=== PATIENT | female | born 1950 | race Caucasian/White ===

== ENCOUNTER 2017-06-07 06:26 | Day surgery (SDC) | payer MEDICARE, OTHER ==
[2017-06-02 16:33] VITALS: BMI 29.0
[~2017-06-07 06:26] MED LIST: LACTATED RINGERS 1,000 ML IV SCH
[2017-06-07 06:56] VITALS: RESP 16; TEMP 97.6
[2017-06-07] MEDS ORDERED: LIDOCAINE 1% 20 ML VIAL (10MG/ML) FOR IV START INTRADERMA ONE (07:00)
[2017-06-07] MEDS ORDERED: LIDOCAINE 1% INJ 10MG/ML (20 ML MDV) ONE (08:00)
[2017-06-07] MEDS ORDERED: PROPOFOL 10 MG/ML 20 ML VIAL IV ONE (08:00)
--- NOTE | 2017-06-07 08:22 | P.PCN ---
Date of Procedure: 06/07/17 Procedure(s) Performed: BRIEF HISTORY: Patient is a 67-year-old pleasant male, scheduled for an elective colonoscopy as a part of screening for colonic neoplasia. PROCEDURE PERFORMED: Colonoscopy. PREOPERATIVE DIAGNOSIS: Screening For colon cancer. IV sedation per Anesthesia. PROCEDURE: After informed consent was obtained, the patient, was brought into the endoscopy unit. IV sedation was administered by Anesthesia under continuous monitoring. Digital rectal examination was normal. Initially the Olympus CF- 160 flexible video colonoscope was then inserted in the rectum, gradually advanced into the cecum without any difficulty. Careful examination was performed as the scope was gradually being withdrawn. Ileocecal valve and the appendiceal orifice were visualized and appeared normal. Prep was excellent. Mucosa of the cecum, ascending colon, transverse colon, descending colon, sigmoid colon, and rectum appeared normal. Scattered sigmoid diverticulosis seen. Retroflexion was performed in the rectum and no lesions were seen. The patient tolerated the procedure well. IMPRESSION: Normal-appearing colon from rectum to cecum with no evidence of colorectal neoplasia . Sigmoid diverticulosis. RECOMMENDATIONS: Findings of this examination were discussed with the patient as well as a family.
[2017-06-07 09:03] VITALS: BP 126/81; PULSE 62
== END 2017-06-07 09:18 | disposition home or self-care (01) ==
LOC: ORWHC2ENDO 06:26
PROVIDERS: ATTEND Internal Medicine Gastroenterology
DX: Z12.11 Encounter for screening for malignant neoplasm of colon (principal); K57.30 Diverticulosis of large intestine without perforation or abscess without bleeding; E07.9 Disorder of thyroid, unspecified; Z79.890 Hormone replacement therapy; Z79.899 Other long term (current) drug therapy
CPT/HCPCS: J2001; J2704; G0121; 45378

== ENCOUNTER → 2019-08-09 | Outpatient (CLI) | payer MEDICARE ==
--- NOTE | 2019-08-13 11:44 | MM ---
Reason for exam: screening (asymptomatic). Last mammogram was performed 9 months ago. History: Patient is postmenopausal and is nulliparous. Family history of breast cancer in mother at age 70. Taking estrogen for 1 year. Physical Findings: A clinical breast exam by your physician is recommended on an annual basis and results should be correlated with mammographic findings. MG Screening Mammo w CAD Bilateral CC and MLO view(s) were taken. Prior study comparison: November 22, 2018, mammogram. November 20, 2017, mammogram. There are scattered fibroglandular densities. No significant changes when compared with prior studies. ASSESSMENT: Negative, BI-RAD 1 RECOMMENDATION: Routine screening mammogram of both breasts in 1 year.
== END | disposition home or self-care (01) ==
LOC: RADMAMWWP 07:26
PROVIDERS: ATTEND Family Medicine
DX: Z12.31 Encounter for screening mammogram for malignant neoplasm of breast (principal)
CPT/HCPCS: 77067

== ENCOUNTER → 2021-08-13 | Outpatient (CLI) | payer MEDICARE ==
--- NOTE | 2021-08-13 10:16 | BD ---
EXAMINATION TYPE: Axial Bone Density DATE OF EXAM: 08/13/2021 COMPARISON: PRIOR STUDIES ERAN PEREZ...06.11.2014 CLINICAL HISTORY: 71 years year old Female. ICD-10 CODE: Z780 SCREENING Height: 62 Weight: 158 FRAX RISK QUESTIONS: Secondary Osteoporosis: YES 3. Menopause before 45: AT 47 RISK FACTORS HISTORY OF: Active: YES Postmenopausal woman: 47, PARTIAL HX EARLIER, RUBÉN AT 47 NATURAL Take estrogen and/or progesterone medications: YES, FOR ABOUT 5-10 YRS, NOW ESTETROL Hyperparathyroidism: NO Adrenal Insufficiency: NO MEDICATIONS: Thyroid Medications: YES, SYNTHROID FOR ABOUT 30+ YRS Additional Medications: VIT D AND CALCIUM AND THE Bs, Additional History: THYROID, EXAM MEASUREMENTS: Bone mineral densitometry was performed using the [employer] System. Bone mineral density as measured about the Lumbar spine is: ----- L1-L4(G/cm2): 1.125 T Score Values are as follows: ----- L1: -0.1 ----- L2: -0.8 ----- L3: -0.2 ----- L4: -0.8 ----- L1-L4: -0.5 Bone mineral density has: Decreased -5.8% SINCE... 06.11.2014 STUDY Bone mineral density about the R hip (g/cm2): 0.858 Bone mineral density about the L hip (g/cm2): 0.879 T Score values are as follows: -----R Neck: -1.7 -----L Neck: -1.6 -----R Total: -1.2 -----L Total: -1.0 Bone mineral density has: Decreased -0.2% SINCE.... 06.11.2014 STUDY FRAX%s: The graph provided illustrates a 10.2% CHANCE FOR A MAJOR OSTEOPOROTIC FX AND 1.6% FOR HIP... .PROBABILITY FOR FX IN 10 YRS TIME IMPRESSION: Osteopenia right hip. NOTE: T-SCORE=SD OF THE YOUNG ADULT MEAN.
--- NOTE | 2021-08-16 17:19 | MM ---
Reason for Exam: Screening (asymptomatic). Last mammogram was performed 2 year(s) and 0 month(s) ago. Patient History: Menarche at age 14. Patient has no children. Postmenopausal. Currently using Estrogen, for 1 year. Mother had breast cancer, age 70. Risk Values: Kelly 5 year model risk: 3.4%. NCI Lifetime model risk: 10.2%. Prior Study Comparison: 11/20/2017 Screening Mammogram, Unknown. 11/22/2018 Screening Mammogram, Unknown. 08/09/2019 Bilateral Screening Mammogram, [facility]. Tissue Density: There are scattered fibroglandular densities. Findings: Analyzed By CAD. No suspicious groups of microcalcifications, spiculated or lobular masses, architectural distortion or other secondary signs of malignancy are mammographically apparent. Overall Assessment: Negative, BI-RAD 1 Management: Screening Mammogram of both breasts in 1 year. A negative mammogram report should not preclude additional follow up of suspicious palpable abnormalities. Patient should continue monthly self breast exam. A clinical breast exam by your physician is recommended on an annual basis and results should be correlated with mammographic findings. Electronically signed and approved by: Kvng Ramirez D.O. Radiologis
== END | disposition home or self-care (01) ==
LOC: RADMAMWWP 07:33
PROVIDERS: ATTEND Family Medicine
DX: Z12.31 Encounter for screening mammogram for malignant neoplasm of breast (principal); M85.88 Other specified disorders of bone density and structure, other site; Z78.0 Asymptomatic menopausal state
CPT/HCPCS: 77063; 77067; 77080

== ENCOUNTER → 2022-09-07 | Outpatient (CLI) | payer MEDICARE ==
--- NOTE | 2022-09-08 08:49 | MM ---
Reason for Exam: Screening (asymptomatic). Last mammogram was performed 1 year(s) and 1 month(s) ago. Patient History: Menarche at age 14. Patient has no children. Postmenopausal. Currently using Estrogen, for 1 year. Mother had breast cancer, age 70. Risk Values: Kelly 5 year model risk: 3.4%. NCI Lifetime model risk: 9.7%. Prior Study Comparison: 11/22/2018 Screening Mammogram, Unknown. 08/09/2019 Bilateral Screening Mammogram, [facility]. 08/13/2021 Bilateral MG 3D screening mammo w/cad, [facility]. Tissue Density: There are scattered fibroglandular densities. Findings: Analyzed By CAD. There is no suspicious group of microcalcifications or new suspicious mass in either breast. Overall Assessment: Negative, BI-RAD 1 Management: Screening Mammogram of both breasts in 1 year. . Patient should continue monthly self-breast exams. A clinical breast exam by your physician is recommended on an annual basis. This exam should not preclude additional follow-up of suspicious palpable abnormalities. Note on Kelly scores and lifetime risk: 1. A Kelly score greater than 3% is considered moderate risk. If this is the case, consider specialist referral to assess eligibility for a risk reducing agent. 2. If overall lifetime risk for the development of breast cancer is 20% or higher, the patient may qualify for future screening with alternating mammogram and breast MRI. Electronically signed and approved by: Matt Contreras M.D. Radiologis
== END | disposition home or self-care (01) ==
LOC: RADMAMWWP 09:05
PROVIDERS: ATTEND Family Medicine
DX: Z12.31 Encounter for screening mammogram for malignant neoplasm of breast (principal); Z78.0 Asymptomatic menopausal state; Z80.3 Family history of malignant neoplasm of breast
CPT/HCPCS: 77063; 77067

== ENCOUNTER → 2023-05-17 | Outpatient (CLI) | payer MEDICARE ==
--- NOTE | 2023-05-17 15:14 | CA ---
Transthoracic Echo Report Name: Evie Mcnally Age: 73 Gender: F : 1950 Exam Date: 05/17/2023 14:18 Exam Location: [place] Echo Ht (in): 63 Wt (lb): 157 Ordering Physician: Kristin Crespo MD Attending/Referring Phys: Preparer Making Department Jennifer Hernández RCS Procedure CPT: Indications: R0.1 MURMUR Cardiac Hx: Technical Quality: Good Contrast 1: Total Dose (mL): Contrast 2: Total Dose (mL): MEASUREMENTS (Male / Female) Normal Values 2D ECHO LV Diastolic Diameter PLAX 3.7 cm 4.2 - 5.9 / 3.9 - 5.3 cm LV Systolic Diameter PLAX 2.5 cm IVS Diastolic Thickness 0.7 cm 0.6 - 1.0 / 0.6 - 0.9 cm LVPW Diastolic Thickness 0.8 cm 0.6 - 1.0 / 0.6 - 0.9 cm LV Relative Wall Thickness 0.4 LVOT Diameter 1.9 cm LV Diastolic Volume MOD BP 89.6 cm??? 67 - 155 / 56 - 104 cm??? LV Systolic Volume MOD BP 28.9 cm??? 22 - 58 / 19 - 49 cm??? LV Ejection Fraction MOD BP 67.7 % >= 55 % LV Cardiac Index MOD BP 2295.0 cm???/min???m??? LV Diastolic Volume MOD 4C 94.4 cm??? LV Systolic Volume MOD 4C 29.6 cm??? LV Ejection Fraction MOD 4C 68.6 % LV Cardiac Index MOD 4C 2448.5 cm???/min???m??? LV Diastolic Length 4C 8.1 cm LV Systolic Length 4C 6.8 cm LV Diastolic Volume MOD 2C 82.0 cm??? LV Systolic Volume MOD 2C 28.1 cm??? LV Ejection Fraction MOD 2C 65.7 % LV Cardiac Index MOD 2C 2038.1 cm???/min???m??? LV Diastolic Length 2C 8.4 cm LV Systolic Length 2C 6.8 cm LA Volume 33.1 cm??? 18 - 58 / 22 - 52 cm??? LA Volume Index 18.4 cm???/m??? 16 - 28 cm???/m??? Ascending Aorta Diameter 3.2 cm DOPPLER AV Peak Velocity 146.5 cm/s AV Peak Gradient 8.6 mmHg AV Mean Velocity 88.9 cm/s AV Mean Gradient 3.8 mmHg AV Velocity Time Integral 32.4 cm LVOT Peak Velocity 134.9 cm/s LVOT Peak Gradient 7.3 mmHg LVOT Velocity Time Integral 28.3 cm LVOT Stroke Volume 78.1 cm??? LVOT Stroke Volume Index 44.7 ml/m??? LVOT Cardiac Index 2950.8 cm???/min???m??? AV Area Cont Eq vti 2.4 cm??? AV Area Cont Eq pk 2.5 cm??? Mitral E Point Velocity 57.9 cm/s Mitral A Point Velocity 78.6 cm/s Mitral E to A Ratio 0.7 MV Deceleration Time 179.2 ms MV E' Velocity 8.6 cm/s Mitral E to MV E' Ratio 6.7 TR Peak Velocity 225.9 cm/s TR Peak Gradient 20.4 mmHg Right Ventricular Systolic Press 25.4 mmHg PV Peak Velocity 74.0 cm/s PV Peak Gradient 2.2 mmHg FINDINGS Left Ventricle Left ventricular ejection fraction is estimated at 60-65 %. Left ventricular cavity size normal. Left ventricular wall thickness normal. No obvious regional wall motion abnormalities. Right Ventricle Normal right ventricular size and function. Right ventricular systolic pressure within normal limits. Right Atrium Normal right atrial size. Left Atrium Normal left atrial size. Mitral Valve Structurally normal mitral valve. No evidence for mitral valve prolapse. No mitral stenosis. Trace mitral regurgitation. Aortic Valve Trileaflet aortic valve. No aortic valve stenosis or regurgitation. Tricuspid Valve Structurally normal tricuspid valve. No tricuspid stenosis. Trace tricuspid regurgitation. Pulmonic Valve Structurally normal pulmonic valve. No pulmonic stenosis. No pulmonic regurgitation. Pericardium No pericardial effusion. Aorta Normal size aortic root and proximal ascending aorta. CONCLUSIONS Normal LV systolic function with an EF=50% Previewed by: Dr. Srinivasan Reynolds MD (Electronically Signed) Final Date: 17 May 2023 15:13
== END | disposition home or self-care (01) ==
LOC: RADECHMAIN 14:06
PROVIDERS: ATTEND Family Medicine
DX: R01.1 Cardiac murmur, unspecified (principal)
CPT/HCPCS: 93306

== ENCOUNTER → 2023-09-11 | Outpatient (CLI) | payer MEDICARE ==
--- NOTE | 2023-09-17 12:53 | MM ---
Reason for Exam: Screening (asymptomatic). Last screening mammogram was performed 12 month(s) ago. Patient History: Menarche at age 14. Patient has no children. Postmenopausal. Currently using Estrogen, for 1 year. Mother had breast cancer, age 70. Risk Values: Kelly 5 year model risk: 3.4%. NCI Lifetime model risk: 9.3%. Prior Study Comparison: 08/09/2019 Bilateral Screening Mammogram, [facility]. 08/13/2021 Bilateral MG 3D screening mammo w/cad, [facility]. 09/07/2022 Bilateral MG 3D screening mammo w/cad, [facility]. Tissue Density: There are scattered areas of fibroglandular density. Findings: Analyzed By CAD. The pattern is symmetrical. No significant interval change. No suspicious groups of microcalcifications, spiculated or lobular masses, architectural distortion or other secondary signs of malignancy are mammographically apparent. Overall Assessment: Benign, BI-RAD 2 Management: Screening Mammogram of both breasts in 1 year. A negative mammogram report should not preclude additional follow up of suspicious palpable abnormalities. Patient should continue monthly self breast exam. A clinical breast exam by your physician is recommended on an annual basis and results should be correlated with mammographic findings. Note on Kelly scores and lifetime risk: 1. A Kelly score greater than 3% is considered moderate risk. If this is the case, consider specialist referral to assess eligibility for a risk reducing agent. 2. If overall lifetime risk for the development of breast cancer is 20% or higher, the patient may qualify for future screening with alternating mammogram and breast MRI. Electronically signed and approved by: Kvng Ramirez D.O. Radiologis
== END | disposition home or self-care (01) ==
LOC: RADMAMWWP 11:14
PROVIDERS: ATTEND Family Medicine
DX: Z12.31 Encounter for screening mammogram for malignant neoplasm of breast (principal); R92.323 Mammographic fibroglandular density, bilateral breasts; Z78.0 Asymptomatic menopausal state; Z80.3 Family history of malignant neoplasm of breast
CPT/HCPCS: 77067